=== PATIENT | female | born 1950 | race Caucasian/White ===

== ENCOUNTER 2016-11-04 13:40 | Day surgery (SDC) | payer MEDICARE, OTHER ==
[~2016-11-04] VITALS: Ht 172.7 cm; Wt 98.4 kg
[2016-11-04 14:25] VITALS: Ht 172.7 cm; Wt 98.4 kg
[2016-11-04] MEDS ORDERED: ROSU5TAB5 PO (14:34)
[2016-11-04] MEDS ORDERED: CITA-104 PO (14:34)
[2016-11-04] MEDS ORDERED: ASPI-664 PO (14:34)
[2016-11-04] MEDS ORDERED: OMEP40CA6 PO (14:34)
[2016-11-04] MEDS ORDERED: TRAM50TA2 PO (14:34)
[2016-11-04] MEDS ORDERED: ARIP2TAB8 PO (14:34)
[2016-11-04] MEDS ORDERED: PROPOFOL 20 ML ONE (15:04)
[2016-11-04] MEDS ORDERED: LIDOCAINE 2% (SDV) 5 ML INJ ONE (15:04)
[2016-11-04 15:10] VITALS: BP 126/71; PULSE 86; RESP 19
--- NOTE | 2016-11-04 16:06 | GILP ---
DATE OF PROCEDURE: NAME OF PROCEDURES: 1. Esophagogastroduodenoscopy and biopsy. 2. Colonoscopy and biopsy. SURGEON: Aric Michel MD PREOPERATIVE DIAGNOSES: 1. Abdominal pain. 2. Chronic heartburn. 3. Change in the bowel habit. 4. Rectal bleeding. POSTOPERATIVE DIAGNOSES: 1. Hiatal hernia. 2. Reflux esophagitis. 3. Gastritis with erosions. 4. Gastric mucosal biopsies were taken for Helicobacter pylori test. 5. Colonoscopy all the way to the cecum. 6. Small transverse colon polyp was removed using the biopsy forceps. 7. Internal hemorrhoids. INDICATION FOR THE PROCEDURE: Ms. Jerzy Moser is a 66-year-old female patient who had upper abd ominal pain and chronic heartburn, not responding to therapy. She also noticed a change in the malick l habit and rectal bleeding. The patient was scheduled for endoscopy and colonoscopy for further ev aluation. The procedures and possible complications are well explained to the patient. She understood and con sented to the procedure. DESCRIPTION OF PROCEDURE: Under the influence of anesthesia, the gastroscope was carefully introduc ed into the esophagus and under direct vision, it was advanced to the stomach and through the pyloru s into the duodenal bulb and descending duodenum. FINDINGS: ESOPHAGUS: The patient had hiatal hernia and reflux esophagitis. STOMACH: The patient had gastritis with erosions. Gastric mucosal biopsies were taken for H. pylor i test. DUODENUM: Normal. The colonoscope was carefully introduced in the rectum and under direct vision, it was advanced all the way to the cecum. FINDINGS: The patient had a small transverse colon polyp and it was removed using the biopsy forcep s. She had internal hemorrhoids. She tolerated the procedures very well and there was no complication from the procedures. At the en d of the procedures, she was awake with stable vital signs and she was discharged home to the care o f her family. IMPRESSION: Please see postoperative diagnosis. PLAN: 1. Continue omeprazole. 2. Anusol-HC suppository at bedtime. 3. Await histopathology reports. 4. Next screening colonoscopy in 10 years. Dictated By: ARIC HOOKER/ALISON Conf#: [id number] DID#: [id number]
[2016-11-04 16:18] VITALS: BP 132/62; PULSE 72; RESP 20
--- NOTE | 2016-11-05 06:24 | CONS ---
DATE OF ADMISSION: 11/04/2016 DATE OF CONSULTATION: TYPE OF CONSULTATION: Preoperative gastroenterology. HISTORY OF PRESENT ILLNESS: Ms. Jerzy Moser is a 66-year-old female patient who has been referr ed to me for further evaluation of abdominal pain and rectal bleeding. The patient states she has e pigastric pain and chronic heartburn, not responding to therapy with omeprazole. There is no past h istory of peptic ulcer disease. The patient is taking baby aspirin a day. There is no history of g allstones. She does not have any fever, chills, or jaundice. There is no history of liver disease. The patient also complains of change in the bowel habit with constipation. She also has rectal bl eeding. There is no past history of colon neoplasm. The patient has hypertension. She is not on a ny medication at the present time. She is not a diabetic. She does not have any heart disease or l indira problem. There is no history of kidney disease. She has hyperlipidemia. The patient has arthr itis and she is status post right knee replacement surgery. She is on [address]. She has bipolar disor jessica. SOCIAL HISTORY: She is a smoker. She also smokes marijuana occasionally. FAMILY HISTORY: Particular for the history of pancreatic cancer in her father. ALLERGIES: SHE STATES SHE IS ALLERGIC TO SULFA. MEDICATIONS: 1. Omeprazole [address] 1 tablet p.r.n. 3. Aspirin 81 mg. 4. Crestor 5 mg. 5. Celexa 40 mg b.i.d. 6. Abilify 1 tablet a day. PHYSICAL EXAMINATION: VITAL SIGNS: She is 5 feet 8 inches tall and she weighs 200 pounds. BMI 31. Blood pressure 160/10 0. HEART: Examination of the heart reveals normal first and second heart sounds. LUNGS: Clear. ABDOMEN: Soft without any distention. Liver and spleen are not palpable. There are no masses. Th ere is no focal tenderness. Normal bowel sounds are heard. RECTAL: Examination deferred per the patient's request. It will be done at the time of colonoscopy . CENTRAL NERVOUS SYSTEM: Does not reveal any focal neurological deficit. IMPRESSION: 1. Upper abdominal pain and chronic heartburn, not responding to therapy with omeprazole. 2. The patient is on baby aspirin a day. 3. Change in the bowel habit with constipation. 4. Rectal bleeding. 5. Hypertension. 6. Hyperlipidemia. 7. Arthritis. 8. Status post knee replacement surgery on the right side. 9. Bipolar disorder. 10. The patient's father had pancreatic cancer. 11. The patient is a smoker. 12. Elevated BMI. 13. HISTORY OF ALLERGY TO SULFA. PLAN: 1. The patient was advised to stop smoking. 2. The patient was strongly advised to lose weight. 3. Dietary consultation was recommended. 4. Follow up with the primary MD for the management of elevated BMI. 5. The patient was advised to have followup with the primary MD for the followup and management of hypertension. 6. Continue omeprazole. 7. MiraLax 17 grams dissolved in a glass of water p.o. daily for constipation. 8. Endoscopy and colonoscopy for further evaluation. 9. Because of the multiple medical problems and obesity, the patient will need monitored anesthesia care for the procedures. Procedures and possible complications are well explained to the patient. She understands and consen ts to the procedures. I thank you once again. With warmest personal regards, Dictated By: CANDIDO HOOKER/ALISON Conf#: [id number] DID#: [id number] CC: CANDIDO TAI MD;*EndCC*
== END 2016-11-04 16:35 | disposition home or self-care (01) ==
LOC: GIL 13:40
PROVIDERS: ATTEND Internal Medicine Gastroenterology
DX: R19.4 Change in bowel habit (principal); D12.3 Benign neoplasm of transverse colon; K44.9 Diaphragmatic hernia without obstruction or gangrene; K29.60 Other gastritis without bleeding; K64.8 Other hemorrhoids; I10 Essential (primary) hypertension; E78.5 Hyperlipidemia, unspecified; E66.9 Obesity, unspecified; Z68.33 Body mass index [BMI] 33.0-33.9, adult
CPT/HCPCS: 87081; 88305